=== PATIENT | male | born 1965 | race Caucasian/White ===

== ENCOUNTER 2018-12-26 17:23 | Inpatient (IN) | payer OTHER, MEDICARE ==
[2018-12-26] MEDS ORDERED: Ketorolac 60 MG/2 ML SDV IM ONE (17:35)
--- NOTE | 2018-12-26 17:39 | EDM.PDOC ---
ED HPI GENERAL MEDICAL PROBLEM - General Chief Complaint: General Stated Complaint: ABD PAIN Time Seen by Provider: 12/26/18 17:25 Source of Information: Reports: Patient History Limitations: Reports: No Limitations - History of Present Illness INITIAL COMMENTS - FREE TEXT/NARRATIVE: According to patient,he claims that he has had lower back and abdominal pain for past 5 days now. He claims it happened after he got his MRI done on Friday.He had a bout of diarrhea which resolve that day. The pain is not constant, comes and goes. Has been having normal bowel movements. Last bowel movement was today morning. No dysuria or urinary frequency. Pt does have chronic back pain, but feels the pain from lower abdomen a times radiates into the back. Today he has been feeling chills with nausea on and off. No vomiting. Has been tolerating oral diet well. Duration: Day(s): (5 days), Getting Worse, Intermittent, Waxing/Waning Location: Reports: Abdomen Quality: Reports: Ache Severity: Moderate Improves with: Reports: None Worsens with: Reports: None Associated Symptoms: Reports: Fever/Chills. Denies: Confusion, Chest Pain, Cough, Diaphoresis, Nausea/Vomiting, Rash, Seizure, Shortness of Breath, Syncope , Weakness Mid Lower Abdomen Pain Score (Numeric/FACES): 4 - Related Data Allergies Allergy/AdvReac Type Severity Reaction Status Date / Time No Known Allergies Allergy Verified 12/26/18 17:56 Home Meds: Home Meds Roflumilast [Daliresp] 500 mcg PO DAILY 07/27/13 [History] Albuterol/Ipratropium [Combivent Respimat] 1 puff INH QID 08/26/14 [History] Montelukast [Singulair] 10 mg PO DAILY 08/26/14 [History] Budesonide/Formoterol Fumarate [Symbicort 80-4.5 Mcg Inhaler] 1 puff IH BID 07/08 [History] Past Medical History Respiratory History: Reports: COPD - Past Surgical History Respiratory Surgical History: Reports: None Social & Family History - Family History Respiratory: Reports: COPD ED ROS GENERAL - Review of Systems Review Of Systems: See Below Constitutional: Reports: Fever, Chills. Denies: Weakness HEENT: Denies: Rhinitis, Throat Pain Respiratory: Denies: Shortness of Breath, Pleuritic Chest Pain, Cough, Sputum Cardiovascular: Denies: Chest Pain, Lightheadedness GI/Abdominal: Reports: Abdominal Pain, Flatus, Nausea. Denies: Black Stool, Constipation, Diarrhea, Hematochezia, Vomiting : Denies: Dysuria, Frequency Musculoskeletal: Denies: Joint Pain, Joint Swelling Skin: Denies: Bruising, Pruritis, Rash Neurological: Denies: Confusion, Dizziness, Headache, Numbness, Tingling ED EXAM, GENERAL - Physical Exam Exam: See Below Exam Limited By: No Limitations General Appearance: Alert, WD/WN, No Apparent Distress Eye Exam: Bilateral Eye: EOMI, PERRL Ears: Normal External Exam, Normal Canal, Hearing Grossly Normal, Normal TMs Ear Exam: Bilateral Ear: Auricle Normal, Canal Normal, TM normal Nose: Normal Inspection, Normal Mucosa, No Blood Throat/Mouth: Normal Inspection, Normal Lips, Normal Teeth, Normal Gums, Normal Oropharynx, Normal Voice, No Airway Compromise Head: Atraumatic, Normocephalic Neck: Normal Inspection, Supple, Non-Tender, Full Range of Motion Respiratory/Chest: No Respiratory Distress, Lungs Clear, Normal Breath Sounds, No Accessory Muscle Use, Chest Non-Tender Cardiovascular: Normal Peripheral Pulses, Regular Rate, Rhythm, No Edema, No Gallop, No JVD, No Murmur, No Rub GI/Abdominal: Normal Bowel Sounds, Soft, Pelvis Stable, Tender (tender in the suprapubic and hypogastric regions.). No: Guarding, Rigid, Rebound, Hepatomegaly Back Exam: Normal Inspection, Full Range of Motion, Paraspinal Tenderness ( lumbar region) Extremities: Normal Inspection, Normal Range of Motion, Non-Tender, Normal Capillary Refill, No Pedal Edema Course - Vital Signs Text/Narrative:: Pt is starting to run low grade fever. He has a temp of 100F in the emergency room. On clinical exam he does have lower abdominal tenderness, with normal bowel sounds. His CBC shows white count of 19. BMP is stable. UA shows RBC. CT abdomen with oral contrast shows sigmoid diverticulitis with microperforation, with no abscess. Apparently patient has developed diverticulitis with perforation. Plan is to admit patient to Hospital. Will keep in NPO. IV zosyn. Start IV NS at 125cc/hr for hydration. Pain and fever control with alternating Dilaudid and Toradol every 4 hrs. I have discussed patient with Dr. Tejeda,General surgeon at [facility] he does agree with the plan. HAve explained the disease process with patient too and he agree with the plan. Will repeat CBC and BMP in Am. Last Recorded V/S: Last Vital Signs Temp 100 F 12/26/18 19:08 Pulse 95 12/26/18 19:08 Resp 18 12/26/18 19:08 BP 118/79 12/26/18 19:08 Pulse Ox 93 L 12/26/18 19:08 - Orders/Labs/Meds Orders: Active Orders 24 hr Category Date Time Status Abdomen Pelvis wo Cont [CT] Stat Exams 12/26/18 17:31 Taken Diatrizoate Genesis/Diatrizoate Na [Gastrografin 37%] Med 12/26/18 19:00 Active 30 ml PO . DIRECTED Medication Orders Diatrizoate Meglum/Diatrizoate Sod (Gastrografin 37%) 30 ml PO . DIRECTED TASNEEM Last Admin: 12/26/18 18:57 Dose: 30 ml Labs: Laboratory Tests 12/26/18 12/26/18 12/26/18 Range/Units 17:30 17:30 17:40 WBC 19.5 H (4.0-11.0) K/uL RBC 5.40 (4.50-6.50) M/uL Hgb 16.0 (13.0-18.0) g/dL Hct 46.3 (40.0-54.0) % MCV 86 (76-96) fL MCH 29.6 (27.0-32.0) pg MCHC 34.6 (31.0-35.0) g/dL RDW 14.5 (11.0-16.0) % Plt Count 277 (150-400) K/uL MPV 11.0 H (6.0-10.0) fL Neut % (Auto) 84.1 H (45.0-70.0) % Lymph % (Auto) 8.2 L (20.0-40.0) % [place] % (Auto) 7.0 (3.0-10.0) % Eos % (Auto) 0.4 L (1.0-5.0) % Baso % (Auto) 0.3 (0.0-0.5) % Neut # (Auto) 16.41 H (2.00-7.50) K/uL Lymph # (Auto) 1.61 (1.50-4.00) K/uL [place] # (Auto) 1.37 H (0.20-0.80) K/uL Eos # (Auto) 0.08 (0.04-0.40) K/uL Baso # (Auto) 0.05 (0.02-0.10) K/uL Sodium 137 (136-145) mmol/L Potassium 4.1 (3.5-5.1) mmol/L Chloride 102 (98-107) mmol/L Carbon Dioxide 22.1 (21.0-32.0) mmol/L Anion Gap 17.0 H (5.0-15.0) mmol/L BUN 16 D (8-26) mg/dL Creatinine 1.09 (0.70-1.30) mg/dL Est Cr Clr Drug Dosing TNP Estimated GFR (MDRD) > 60 (>60) MLS/MIN BUN/Creatinine Ratio 14.7 (6-25) Glucose 97 (74-100) mg/dL Calcium 8.4 L (8.5-10.1) mg/dL Total Bilirubin 0.9 (0.0-1.0) mg/dL AST 18 (15-37) U/L ALT 28 (12-78) U/L Alkaline Phosphatase 92 (46-116) U/L Total Protein 7.5 (6.4-8.2) g/dL Albumin 3.5 (3.4-5.0) g/dL Globulin 4.0 (2.2-4.2) g/dL Albumin/Globulin Ratio 0.9 (0.8-2.0) Urine Color Yellow Urine Appearance Clear (CLEAR) Urine pH 5.5 (5.0-8.0) Ur Specific [place] 1.025 (1.003-1.030) Urine Protein 30 H (NEGATIVE) mg/dL Urine Glucose (UA) Negative (NEGATIVE) mg/dL Urine Ketones 40 H (NEGATIVE) mg/dL Urine Occult Blood Trace-lysed H (NEGATIVE) Urine Nitrite Negative (NEGATIVE) Urine Bilirubin Small H (NEGATIVE) Urine Urobilinogen 0.2 (0.2-1.0) E.U./dL Ur Leukocyte Esterase Negative (NEGATIVE) Urine RBC Not seen /HPF Urine WBC Not seen /HPF Meds: Medications Generic Name Dose Route Start Last Admin Trade Name Freq PRN Reason Stop Dose Admin Diatrizoate Meglum/Diatrizoate Sod 30 ml 12/26/18 19:00 12/26/18 18:57 Gastrografin 37% PO 30 ml . DIRECTED TASNEEM Administration Discontinued Medications Generic Name Dose Route Start Last Admin Trade Name Freq PRN Reason Stop Dose Admin Hydromorphone HCl 2 mg 12/26/18 18:08 12/26/18 18:12 Dilaudid IM 12/26/18 18:09 Not Given ONETIME ONE Hydromorphone HCl 1 mg 12/26/18 18:09 12/26/18 18:11 Dilaudid IVPUSH 12/26/18 18:10 1 mg ONETIME ONE Administration Ketorolac Tromethamine 30 mg 12/26/18 17:35 12/26/18 17:35 Toradol IM 12/26/18 17:36 30 mg ONETIME ONE Administration Departure - Departure Time of Disposition: 19:45 Disposition: Admitted As Inpatient 66 Condition: Fair Clinical Impression: Diverticulitis of colon with perforation - Discharge Information *PRESCRIPTION DRUG MONITORING PROGRAM REVIEWED*: Not Applicable *COPY OF PRESCRIPTION DRUG MONITORING REPORT IN PATIENT MAURICIO: Not Applicable Forms: ED Department Discharge - Problem List & Annotations (1) Diverticulitis of colon with perforation SNOMED Code(s): 79468816 Code(s): K57.20 - DVTRCLI OF LG INT W PERFORATION AND ABSCESS W/O BLEEDING Status: Acute Current Visit: Yes - Problem List Review Problem List Initiated/Reviewed/Updated: Yes - My Orders Last 24 Hours: My Active Orders 12/26/18 17:31 Abdomen Pelvis wo Cont [CT] Stat - Assessment/Plan Last 24 Hours: My Active Orders 12/26/18 17:31 Abdomen Pelvis wo Cont [CT] Stat Assessment:: Sigmoid diverticulitis with perforation Plan: Pt is starting to run low grade fever. He has a temp of 100F in the emergency room. On clinical exam he does have lower abdominal tenderness, with normal bowel sounds. His CBC shows white count of 19. BMP is stable. UA shows RBC. CT abdomen with oral contrast shows sigmoid diverticulitis with microperforation, with no abscess. Apparently patient has developed diverticulitis with perforation. Plan is to admit patient to Hospital. Will keep in NPO. IV zosyn. Start IV NS at 125cc/hr for hydration. Pain and fever control with alternating Dilaudid and Toradol every 4 hrs. I have discussed patient with Dr. Tejeda,General surgeon at [facility] he does agree with the plan. Have explained the disease process with patient too and he agree with the plan. Will repeat CBC and BMP in Am.
[2018-12-26] MEDS ORDERED: HYDROmorphone 2 MG/ML SDV IM ONE (18:08)
[2018-12-26] MEDS ORDERED: HYDROmorphone 2 MG/ML Syringe IVPUSH ONE (18:09)
[2018-12-26] MEDS ORDERED: Diatrizoate Meglumine/Diatrizoate Sodium 37% 30 ML Bottle PO SCH (19:00)
[2018-12-26] MEDS ORDERED: Sodium Chloride 0.9% 10 ML Syringe FLUSH PRN (19:51)
[2018-12-26] MEDS ORDERED: Ketorolac 60 MG/2 ML SDV IVPUSH PRN (19:51)
[2018-12-26] MEDS ORDERED: Ondansetron 4 MG/2 ML SDV IV PRN (19:51)
[2018-12-26] MEDS: Sodium Chloride 0.9% 1,000 ML IV SCH (20:20)
[2018-12-26] MEDS: HYDROmorphone 2 MG/ML Syringe IV PRN (20:43)
[2018-12-26] MEDS ORDERED: Non-Formulary Medication 1 Each (Budesonide/Formoterol Fumarate [Symbicort 80-4.5 Mcg Inha IH SCH (20:45)
[2018-12-26] MEDS: Piperacillin/Tazobactam 3.375 GM in Sodium Chloride 0.9% 100 ML IV SCH (20:46)
[2018-12-26] MEDS: Formoterol/Mometasone 100-5 MCG 8.8 GM Inhaler IH SCH (21:12)
[2018-12-26] MEDS ORDERED: Albuterol/Ipratropium 14.7 GM Inhaler INH PRN (21:15)
[2018-12-27] MEDS: Pantoprazole 40 MG Vial IVPUSH SCH ×2 (01:13→19:58)
[2018-12-27] MEDS: Ketorolac 60 MG/2 ML SDV IVPUSH PRN ×3 (01:16→22:15)
[2018-12-27] MEDS: Piperacillin/Tazobactam 3.375 GM in Sodium Chloride 0.9% 100 ML IV SCH ×4 (01:18→20:03)
[2018-12-27] MEDS: HYDROmorphone 2 MG/ML Syringe IV PRN ×2 (05:55→18:05)
[2018-12-27] MEDS: Sodium Chloride 0.9% 1,000 ML IV SCH ×3 (07:37→22:10)
[2018-12-27] MEDS: Formoterol/Mometasone 100-5 MCG 8.8 GM Inhaler IH SCH ×2 (07:58→19:55)
[2018-12-27] MEDS ORDERED: Montelukast 10 MG Tab PO SCH (08:00)
[2018-12-27] MEDS ORDERED: Roflumilast 500 MCG Tab PO SCH (08:00)
[2018-12-27] MEDS ORDERED: Non-Formulary Medication 1 Each (Albuterol/Ipratropium [Combivent Respimat] 1 PUFF) INH SCH (08:00)
--- NOTE | 2018-12-27 10:24 | PCM.PN ---
- Patient Data Vitals - Most Recent: Last Vital Signs Temp 98 F 12/27/18 08:00 Pulse 85 12/27/18 08:00 Resp 18 12/27/18 08:00 BP 93/59 L 12/27/18 08:00 Pulse Ox 94 L 12/27/18 08:00 Weight - Most Recent: 91.989 kg I&O - Last 24 Hours: Intake & Output 12/26/18 12/27/18 12/27/18 21:59 06:59 14:59 Intake Total Output Total Balance Lab Results Last 24 Hours: Laboratory Results - last 24 hr 12/26/18 12/26/18 12/26/18 Range/Units 17:30 17:30 17:40 WBC 19.5 H (4.0-11.0) K/uL RBC 5.40 (4.50-6.50) M/uL Hgb 16.0 (13.0-18.0) g/dL Hct 46.3 (40.0-54.0) % MCV 86 (76-96) fL MCH 29.6 (27.0-32.0) pg MCHC 34.6 (31.0-35.0) g/dL RDW 14.5 (11.0-16.0) % Plt Count 277 (150-400) K/uL MPV 11.0 H (6.0-10.0) fL Neut % (Auto) 84.1 H (45.0-70.0) % Lymph % (Auto) 8.2 L (20.0-40.0) % [place] % (Auto) 7.0 (3.0-10.0) % Eos % (Auto) 0.4 L (1.0-5.0) % Baso % (Auto) 0.3 (0.0-0.5) % Neut # (Auto) 16.41 H (2.00-7.50) K/uL Lymph # (Auto) 1.61 (1.50-4.00) K/uL [place] # (Auto) 1.37 H (0.20-0.80) K/uL Eos # (Auto) 0.08 (0.04-0.40) K/uL Baso # (Auto) 0.05 (0.02-0.10) K/uL Sodium 137 (136-145) mmol/L Potassium 4.1 (3.5-5.1) mmol/L Chloride 102 (98-107) mmol/L Carbon Dioxide 22.1 (21.0-32.0) mmol/L Anion Gap 17.0 H (5.0-15.0) mmol/L BUN 16 D (8-26) mg/dL Creatinine 1.09 (0.70-1.30) mg/dL Est Cr Clr Drug Dosing TNP Estimated GFR (MDRD) > 60 (>60) MLS/MIN BUN/Creatinine Ratio 14.7 (6-25) Glucose 97 (74-100) mg/dL Calcium 8.4 L (8.5-10.1) mg/dL Total Bilirubin 0.9 (0.0-1.0) mg/dL AST 18 (15-37) U/L ALT 28 (12-78) U/L Alkaline Phosphatase 92 (46-116) U/L Total Protein 7.5 (6.4-8.2) g/dL Albumin 3.5 (3.4-5.0) g/dL Globulin 4.0 (2.2-4.2) g/dL Albumin/Globulin Ratio 0.9 (0.8-2.0) Urine Color Yellow Urine Appearance Clear (CLEAR) Urine pH 5.5 (5.0-8.0) Ur Specific [place] 1.025 (1.003-1.030) Urine Protein 30 H (NEGATIVE) mg/dL Urine Glucose (UA) Negative (NEGATIVE) mg/dL Urine Ketones 40 H (NEGATIVE) mg/dL Urine Occult Blood Trace-lysed H (NEGATIVE) Urine Nitrite Negative (NEGATIVE) Urine Bilirubin Small H (NEGATIVE) Urine Urobilinogen 0.2 (0.2-1.0) E.U./dL Ur Leukocyte Esterase Negative (NEGATIVE) Urine RBC Not seen /HPF Urine WBC Not seen /HPF 12/27/18 12/27/18 Range/Units 09:33 09:33 WBC 13.3 H D (4.0-11.0) K/uL RBC 4.78 (4.50-6.50) M/uL Hgb 13.9 (13.0-18.0) g/dL Hct 42.0 (40.0-54.0) % MCV 88 (76-96) fL MCH 29.1 (27.0-32.0) pg MCHC 33.1 (31.0-35.0) g/dL RDW 14.7 (11.0-16.0) % Plt Count 213 D (150-400) K/uL MPV 10.6 H (6.0-10.0) fL Neut % (Auto) 72.3 H (45.0-70.0) % Lymph % (Auto) 16.5 L (20.0-40.0) % [place] % (Auto) 9.8 (3.0-10.0) % Eos % (Auto) 1.1 (1.0-5.0) % Baso % (Auto) 0.3 (0.0-0.5) % Neut # (Auto) 9.61 H (2.00-7.50) K/uL Lymph # (Auto) 2.19 (1.50-4.00) K/uL [place] # (Auto) 1.30 H (0.20-0.80) K/uL Eos # (Auto) 0.15 (0.04-0.40) K/uL Baso # (Auto) 0.04 (0.02-0.10) K/uL Sodium 142 (136-145) mmol/L Potassium 4.0 (3.5-5.1) mmol/L Chloride 106 (98-107) mmol/L Carbon Dioxide 26.2 (21.0-32.0) mmol/L Anion Gap 13.8 (5.0-15.0) mmol/L BUN 18 (8-26) mg/dL Creatinine 1.17 (0.70-1.30) mg/dL Est Cr Clr Drug Dosing 65.89 Estimated GFR (MDRD) > 60 (>60) MLS/MIN BUN/Creatinine Ratio 15.4 (6-25) Glucose 104 H (74-100) mg/dL Calcium 7.7 L (8.5-10.1) mg/dL Total Bilirubin (0.0-1.0) mg/dL AST (15-37) U/L ALT (12-78) U/L Alkaline Phosphatase (46-116) U/L Total Protein (6.4-8.2) g/dL Albumin (3.4-5.0) g/dL Globulin (2.2-4.2) g/dL Albumin/Globulin Ratio (0.8-2.0) Urine Color Urine Appearance (CLEAR) Urine pH (5.0-8.0) Ur Specific [place] (1.003-1.030) Urine Protein (NEGATIVE) mg/dL Urine Glucose (UA) (NEGATIVE) mg/dL Urine Ketones (NEGATIVE) mg/dL Urine Occult Blood (NEGATIVE) Urine Nitrite (NEGATIVE) Urine Bilirubin (NEGATIVE) Urine Urobilinogen (0.2-1.0) E.U./dL Ur Leukocyte Esterase (NEGATIVE) Urine RBC /HPF Urine WBC /HPF Med Orders - Current: Current Medications Albuterol/Ipratropium (Combivent) 0 gm INH QID PRN PRN Reason: SHORTNESS OF BREATH Hydromorphone HCl (Dilaudid) 1 mg IV Q8H PRN PRN Reason: Pain (severe 7-10) Last Admin: 12/27/18 05:55 Dose: 1 mg Sodium Chloride (Normal Saline) 1,000 mls @ 125 mls/hr IV ASDIRECTED [facility] Last Admin: 12/27/18 07:37 Dose: 125 mls/hr Piperacillin Sod/Tazobactam (Sod 3.375 gm/ Sodium Chloride) 100 mls @ 100 mls/ hr IV Q6H [facility] Last Admin: 12/27/18 07:53 Dose: 100 mls/hr Ketorolac Tromethamine (Toradol) 30 mg IVPUSH Q8H PRN PRN Reason: Pain (moderate 4-6) Stop: 12/31/18 23:31 Last Admin: 12/27/18 10:22 Dose: 30 mg Mometasone Furoate/Formoterol Fumar (Dulera 100-5 Mcg) 2 puff IH BID [facility] Last Admin: 12/27/18 07:58 Dose: 2 puff Ondansetron HCl (Zofran) 4 mg IV Q6H PRN PRN Reason: Nausea/Vomiting Pantoprazole Sodium (Protonix Iv) 40 mg IVPUSH BEDTIME [facility] Last Admin: 12/27/18 01:13 Dose: 40 mg Sodium Chloride (Saline Flush) 10 ml FLUSH ASDIRECTED PRN PRN Reason: Keep Vein Open Discontinued Medications Diatrizoate Meglum/Diatrizoate Sod (Gastrografin 37%) 30 ml PO . DIRECTED [facility] Last Admin: 12/26/18 18:57 Dose: 30 ml Hydromorphone HCl (Dilaudid) 2 mg IM ONETIME ONE Stop: 12/26/18 18:09 Last Admin: 12/26/18 18:12 Dose: Not Given Hydromorphone HCl (Dilaudid) 1 mg IVPUSH ONETIME ONE Stop: 12/26/18 18:10 Last Admin: 12/26/18 18:11 Dose: 1 mg Ketorolac Tromethamine (Toradol) 30 mg IM ONETIME ONE Stop: 12/26/18 17:36 Last Admin: 12/26/18 17:35 Dose: 30 mg Ketorolac Tromethamine (Toradol) 30 mg IVPUSH Q8H PRN PRN Reason: Pain (moderate 4-6) Montelukast Sodium (Singulair) 10 mg PO DAILY [facility] Last Admin: 12/27/18 10:07 Dose: Not Given Non-Formulary Medication (Albuterol/Ipratropium [Combivent Respimat]) 1 puff INH QID [facility] Non-Formulary Medication (Budesonide/Formoterol Fumarate [Symbicort 80-4.5 Mcg Inhaler]) 1 puff IH BID [facility] Last Admin: 12/26/18 21:07 Dose: Not Given - Problem List & Annotations (1) Diverticulitis of colon with perforation SNOMED Code(s): 32714256 Code(s): K57.20 - DVTRCLI OF LG INT W PERFORATION AND ABSCESS W/O BLEEDING Status: Acute Current Visit: Yes - My Orders Last 24 Hours: My Active Orders 12/26/18 17:31 Abdomen Pelvis wo Cont [CT] Stat 12/26/18 19:51 Patient Status [ADT] Routine Bedrest Bathroom Privileges [RC] ASDIRECTED Oxygen Therapy [RC] PRN Vital Signs [RC] Q4H HYDROmorphone [Dilaudid] 1 mg IV Q8H PRN Ondansetron [Zofran] 4 mg IV Q6H PRN Sodium Chloride 0.9% [Saline Flush] 10 ml FLUSH ASDIRECTED PRN Peripheral IV Insertion Adult [OM.PC] Routine Resuscitation Status Routine 12/26/18 19:52 Intake and Output [RC] 06,18 12/26/18 20:00 Piperacillin/Tazobactam [Zosyn] 3.375 gm Sodium Chloride 0.9% [Normal Saline] 100 ml IV Q6H Sodium Chloride 0.9% [Normal Saline] 1,000 ml IV ASDIRECTED 12/26/18 21:15 Albuterol/Ipratropium [Combivent] 0 gm INH QID PRN Mometasone/Formoterol [Dulera 100-5 MCG] 2 puff IH BID 12/26/18 23:30 Ketorolac [Toradol] 30 mg IVPUSH Q8H PRN 12/27/18 01:00 Pantoprazole [ProTONIX IV] 40 mg IVPUSH BEDTIME
--- NOTE | 2018-12-27 12:27 | CT ---
DATE OF SERVICE: 12/26/18 CLINICAL DATA: lower abdomen pain ABDOMEN AND PELVIC CT: Multislice acquisition through the abdomen and pelvis without IV, but with oral contrast was performed. No priors. There is a small hiatal hernia There are minimal atelectatic changes in both lung bases. The lung bases are otherwise clear. The unenhanced liver appears normal. No focal hepatic lesions. There are small radiodensities within the gallbladder, suspicious for gallstones. Gallbladder ultrasound is recommended. The spleen appears normal. The pancreas appears normal. The right and left adrenals appear normal. The right and left kidneys appear normal. No nephrocalcinosis or nephrolithiasis. No hydronephrosis or hydroureter. The appendix is not dilated. No evidence of appendicitis. There is diverticulosis of the descending and sigmoid colon. There is extensive pericolonic fat stranding adjacent to the proximal and mid sigmoid colon. There is also mural thickening throughout this segment of the colon. The findings are consistent with acute diverticulitis. I do not see any evidence of a diverticular abscess. I do not see any free air. I do not see any free fluid. I see no adenopathy. I see no aortic aneurysm. There is a small amount of fluid within the bladder. It appears grossly normal. IMPRESSION: 1) Diverticulosis. Findings consistent with sigmoid diverticulitis. There is mural thickening throughout this segment of the colon, most likely related to the diverticulitis. Colonoscopy over treatment is, however, recommended to exclude an infiltrating process. 2) Probable small gallstones. Gallbladder ultrasound is recommended. [id number] [facility]
--- NOTE | 2018-12-27 16:12 | PCM.PN ---
- General Info Date of Service: 12/27/18 Subjective Update: Pt claims he is feeling better with his abdominal pain. Still gets mild colicky pain. He has had 2 large loose stools, which were watery today. Tmax of 100F. No nausea or vomiting. No abdominal bloating. Functional Status: Reports: Pain Controlled, Ambulating, Urinating, Other (NPO) - Review of Systems General: Reports: Fever. Denies: Weakness, Fatigue HEENT: Denies: Headaches, Sinus Congestion Pulmonary: Denies: Shortness of Breath, Pleuritic Chest Pain, Sputum, Hemoptysis Cardiovascular: Denies: Chest Pain, Lightheadedness Gastrointestinal: Reports: Diarrhea, Flatus. Denies: Abdominal Pain, Hematochezia, Melena Genitourinary: Denies: Dysuria, Frequency Skin: Denies: Jaundice, Pruritis Neurological: Denies: Confusion, Dizziness - Patient Data Vitals - Most Recent: Last Vital Signs Temp 97.6 F 12/27/18 11:43 Pulse 78 12/27/18 11:43 Resp 20 12/27/18 11:43 BP 100/63 12/27/18 11:43 Pulse Ox 95 12/27/18 11:43 Weight - Most Recent: 91.989 kg I&O - Last 24 Hours: Intake & Output 12/27/18 12/27/18 12/27/18 06:59 14:59 22:59 Intake Total Output Total Balance Lab Results Last 24 Hours: Laboratory Results - last 24 hr 12/26/18 12/26/18 12/26/18 Range/Units 17:30 17:30 17:40 WBC 19.5 H (4.0-11.0) K/uL RBC 5.40 (4.50-6.50) M/uL Hgb 16.0 (13.0-18.0) g/dL Hct 46.3 (40.0-54.0) % MCV 86 (76-96) fL MCH 29.6 (27.0-32.0) pg MCHC 34.6 (31.0-35.0) g/dL RDW 14.5 (11.0-16.0) % Plt Count 277 (150-400) K/uL MPV 11.0 H (6.0-10.0) fL Neut % (Auto) 84.1 H (45.0-70.0) % Lymph % (Auto) 8.2 L (20.0-40.0) % [place] % (Auto) 7.0 (3.0-10.0) % Eos % (Auto) 0.4 L (1.0-5.0) % Baso % (Auto) 0.3 (0.0-0.5) % Neut # (Auto) 16.41 H (2.00-7.50) K/uL Lymph # (Auto) 1.61 (1.50-4.00) K/uL [place] # (Auto) 1.37 H (0.20-0.80) K/uL Eos # (Auto) 0.08 (0.04-0.40) K/uL Baso # (Auto) 0.05 (0.02-0.10) K/uL Sodium 137 (136-145) mmol/L Potassium 4.1 (3.5-5.1) mmol/L Chloride 102 (98-107) mmol/L Carbon Dioxide 22.1 (21.0-32.0) mmol/L Anion Gap 17.0 H (5.0-15.0) mmol/L BUN 16 D (8-26) mg/dL Creatinine 1.09 (0.70-1.30) mg/dL Est Cr Clr Drug Dosing TNP Estimated GFR (MDRD) > 60 (>60) MLS/MIN BUN/Creatinine Ratio 14.7 (6-25) Glucose 97 (74-100) mg/dL Calcium 8.4 L (8.5-10.1) mg/dL Total Bilirubin 0.9 (0.0-1.0) mg/dL AST 18 (15-37) U/L ALT 28 (12-78) U/L Alkaline Phosphatase 92 (46-116) U/L Total Protein 7.5 (6.4-8.2) g/dL Albumin 3.5 (3.4-5.0) g/dL Globulin 4.0 (2.2-4.2) g/dL Albumin/Globulin Ratio 0.9 (0.8-2.0) Urine Color Yellow Urine Appearance Clear (CLEAR) Urine pH 5.5 (5.0-8.0) Ur Specific [place] 1.025 (1.003-1.030) Urine Protein 30 H (NEGATIVE) mg/dL Urine Glucose (UA) Negative (NEGATIVE) mg/dL Urine Ketones 40 H (NEGATIVE) mg/dL Urine Occult Blood Trace-lysed H (NEGATIVE) Urine Nitrite Negative (NEGATIVE) Urine Bilirubin Small H (NEGATIVE) Urine Urobilinogen 0.2 (0.2-1.0) E.U./dL Ur Leukocyte Esterase Negative (NEGATIVE) Urine RBC Not seen /HPF Urine WBC Not seen /HPF 12/27/18 12/27/18 12/27/18 Range/Units 09:33 09:33 15:49 WBC 13.3 H D (4.0-11.0) K/uL RBC 4.78 (4.50-6.50) M/uL Hgb 13.9 (13.0-18.0) g/dL Hct 42.0 (40.0-54.0) % MCV 88 (76-96) fL MCH 29.1 (27.0-32.0) pg MCHC 33.1 (31.0-35.0) g/dL RDW 14.7 (11.0-16.0) % Plt Count 213 D (150-400) K/uL MPV 10.6 H (6.0-10.0) fL Neut % (Auto) 72.3 H (45.0-70.0) % Lymph % (Auto) 16.5 L (20.0-40.0) % [place] % (Auto) 9.8 (3.0-10.0) % Eos % (Auto) 1.1 (1.0-5.0) % Baso % (Auto) 0.3 (0.0-0.5) % Neut # (Auto) 9.61 H (2.00-7.50) K/uL Lymph # (Auto) 2.19 (1.50-4.00) K/uL [place] # (Auto) 1.30 H (0.20-0.80) K/uL Eos # (Auto) 0.15 (0.04-0.40) K/uL Baso # (Auto) 0.04 (0.02-0.10) K/uL Sodium 142 (136-145) mmol/L Potassium 4.0 (3.5-5.1) mmol/L Chloride 106 (98-107) mmol/L Carbon Dioxide 26.2 (21.0-32.0) mmol/L Anion Gap 13.8 (5.0-15.0) mmol/L BUN 18 (8-26) mg/dL Creatinine 1.17 (0.70-1.30) mg/dL Est Cr Clr Drug Dosing 65.89 Estimated GFR (MDRD) > 60 (>60) MLS/MIN BUN/Creatinine Ratio 15.4 (6-25) Glucose 104 H (74-100) mg/dL Calcium 7.7 L (8.5-10.1) mg/dL Total Bilirubin (0.0-1.0) mg/dL AST (15-37) U/L ALT (12-78) U/L Alkaline Phosphatase (46-116) U/L Total Protein (6.4-8.2) g/dL Albumin (3.4-5.0) g/dL Globulin (2.2-4.2) g/dL Albumin/Globulin Ratio (0.8-2.0) Urine Color Yellow Urine Appearance Cloudy (CLEAR) Urine pH 5.5 (5.0-8.0) Ur Specific [place] >= 1.030 (1.003-1.030) Urine Protein Trace H (NEGATIVE) mg/dL Urine Glucose (UA) Negative (NEGATIVE) mg/dL Urine Ketones Trace H (NEGATIVE) mg/dL Urine Occult Blood Negative (NEGATIVE) Urine Nitrite Negative (NEGATIVE) Urine Bilirubin Small H (NEGATIVE) Urine Urobilinogen 0.2 (0.2-1.0) E.U./dL Ur Leukocyte Esterase Negative (NEGATIVE) Urine RBC /HPF Urine WBC /HPF Med Orders - Current: Current Medications Albuterol/Ipratropium (Combivent) 0 gm INH QID PRN PRN Reason: SHORTNESS OF BREATH Hydromorphone HCl (Dilaudid) 1 mg IV Q8H PRN PRN Reason: Pain (severe 7-10) Last Admin: 12/27/18 05:55 Dose: 1 mg Sodium Chloride (Normal Saline) 1,000 mls @ 125 mls/hr IV ASDIRECTED [facility] Last Admin: 12/27/18 07:37 Dose: 125 mls/hr Piperacillin Sod/Tazobactam (Sod 3.375 gm/ Sodium Chloride) 100 mls @ 100 mls/ hr IV Q6H [facility] Last Admin: 12/27/18 14:03 Dose: 100 mls/hr Ketorolac Tromethamine (Toradol) 30 mg IVPUSH Q8H PRN PRN Reason: Pain (moderate 4-6) Stop: 12/31/18 23:31 Last Admin: 12/27/18 10:22 Dose: 30 mg Mometasone Furoate/Formoterol Fumar (Dulera 100-5 Mcg) 2 puff IH BID [facility] Last Admin: 12/27/18 07:58 Dose: 2 puff Ondansetron HCl (Zofran) 4 mg IV Q6H PRN PRN Reason: Nausea/Vomiting Pantoprazole Sodium (Protonix Iv) 40 mg IVPUSH BEDTIME [facility] Last Admin: 12/27/18 01:13 Dose: 40 mg Sodium Chloride (Saline Flush) 10 ml FLUSH ASDIRECTED PRN PRN Reason: Keep Vein Open Discontinued Medications Diatrizoate Meglum/Diatrizoate Sod (Gastrografin 37%) 30 ml PO . DIRECTED [facility] Last Admin: 12/26/18 18:57 Dose: 30 ml Hydromorphone HCl (Dilaudid) 2 mg IM ONETIME ONE Stop: 12/26/18 18:09 Last Admin: 12/26/18 18:12 Dose: Not Given Hydromorphone HCl (Dilaudid) 1 mg IVPUSH ONETIME ONE Stop: 12/26/18 18:10 Last Admin: 12/26/18 18:11 Dose: 1 mg Ketorolac Tromethamine (Toradol) 30 mg IM ONETIME ONE Stop: 12/26/18 17:36 Last Admin: 12/26/18 17:35 Dose: 30 mg Ketorolac Tromethamine (Toradol) 30 mg IVPUSH Q8H PRN PRN Reason: Pain (moderate 4-6) Montelukast Sodium (Singulair) 10 mg PO DAILY [facility] Last Admin: 12/27/18 10:07 Dose: Not Given Non-Formulary Medication (Albuterol/Ipratropium [Combivent Respimat]) 1 puff INH QID [facility] Non-Formulary Medication (Budesonide/Formoterol Fumarate [Symbicort 80-4.5 Mcg Inhaler]) 1 puff IH BID [facility] Last Admin: 12/26/18 21:07 Dose: Not Given - Exam General: Alert, Oriented HEENT: Pupils Equal, Pupils Reactive, EOMI, Mucous Membr. Moist/[place] Neck: Supple Lungs: Clear to Auscultation Cardiovascular: Regular Rate, Regular Rhythm GI/Abdominal Exam: Soft, No Distention, Tender (tender in the lower abdomen), Abnormal Bowel Sounds (slightly hyperactive bowel sounds). No: Guarding, Rigid , Rebound Extremities: Normal Inspection, Normal Range of Motion, Non-Tender, No Pedal Edema, Normal Capillary Refill Skin: Warm, Intact - Problem List & Annotations (1) Diverticulitis of colon with perforation SNOMED Code(s): 01812527 Code(s): K57.20 - DVTRCLI OF LG INT W PERFORATION AND ABSCESS W/O BLEEDING Status: Acute Current Visit: Yes - Problem List Review Problem List Initiated/Reviewed/Updated: Yes - My Orders Last 24 Hours: My Active Orders 12/26/18 19:51 Patient Status [ADT] Routine Bedrest Bathroom Privileges [RC] ASDIRECTED Oxygen Therapy [RC] PRN Vital Signs [RC] Q4H HYDROmorphone [Dilaudid] 1 mg IV Q8H PRN Ondansetron [Zofran] 4 mg IV Q6H PRN Sodium Chloride 0.9% [Saline Flush] 10 ml FLUSH ASDIRECTED PRN Peripheral IV Insertion Adult [OM.PC] Routine Resuscitation Status Routine 12/26/18 19:52 Intake and Output [RC] 06,18 12/26/18 20:00 Piperacillin/Tazobactam [Zosyn] 3.375 gm Sodium Chloride 0.9% [Normal Saline] 100 ml IV Q6H Sodium Chloride 0.9% [Normal Saline] 1,000 ml IV ASDIRECTED 12/26/18 21:15 Albuterol/Ipratropium [Combivent] 0 gm INH QID PRN Mometasone/Formoterol [Dulera 100-5 MCG] 2 puff IH BID 12/26/18 23:30 Ketorolac [Toradol] 30 mg IVPUSH Q8H PRN 12/27/18 01:00 Pantoprazole [ProTONIX IV] 40 mg IVPUSH BEDTIME 03/10/19 15:49 UA W/MICROSCOPIC [URIN] Routine - Assessment Assessment:: Sigmoid diverticulitis with perforation - Plan Plan:: Pt's white count is down to 13K today. Still has abdominal pain, but improving. Afebrile today. Will continue Iv fluids and keep him NPO on antibitocis. He has had decreased urine output, but probably lost fluids with diarrhea. UA done today is negative for infection and his BMP is stable.Have given bolus of 500cc NS. will repeat CBC and BMP in Am.
[2018-12-27] MEDS ORDERED: Sodium Chloride 0.9% 500 ML IV ONE ×2 (16:19→16:21)
[2018-12-28] MEDS: HYDROmorphone 2 MG/ML Syringe IV PRN (01:18)
[2018-12-28] MEDS: Piperacillin/Tazobactam 3.375 GM in Sodium Chloride 0.9% 100 ML IV SCH ×2 (01:19→08:16)
[2018-12-28] MEDS: Sodium Chloride 0.9% 1,000 ML IV SCH (08:07)
[2018-12-28] MEDS: Ketorolac 60 MG/2 ML SDV IVPUSH PRN (08:08)
[2018-12-28] MEDS ORDERED: Iopamidol 612 MG/ML 100 ML Bottle IV PRN (08:41)
[2018-12-28] MEDS ORDERED: Sodium Chloride 0.9% 50 ML SDV FLUSH SCH (08:45)
[2018-12-28] MEDS: Formoterol/Mometasone 100-5 MCG 8.8 GM Inhaler IH SCH (08:58)
[2018-12-28 10:36] VITALS: BP 114/72
--- NOTE | 2018-12-28 11:01 | CT ---
DATE OF SERVICE: 12/28/2018 CLINICAL DATA: Possible diverticular abscess. ENHANCED ABDOMEN AND PELVIC CT: Multislice acquisition through the abdomen with IV, but without oral contrast was performed. Comparison is made to a prior unenhanced abdomen and pelvic CT dated 2018. Again noted is the extensive pericolonic fat stranding adjacent to the distal descending and sigmoid colon consistent with diverticulitis. There has been mild progression from the prior exam. I do not see evidence of a diverticular abscess. There is mural thickening of this segment of colon most likely due to the diverticulitis. Again colonoscopy after treatment is necessary to exclude an infiltrating process. The exam is otherwise unchanged from the prior. No new abnormalities. No free air. No dilated loops of bowel. The liver, gallbladder, spleen, pancreas, right and left adrenals and right and left kidneys are stable. [id number] [facility]
--- NOTE | 2018-12-28 12:12 | PCM.DCSUM1 ---
Discharge Summary - Hospital Course Free Text/Narrative:: Pt presented to the emergency room on 12/26/18 with c/o lower abdominal pain for 5 days. On workup in the emergency room, he did have sigmoid diverticulitis with possible microperforation. Pt was clinically stable other than low grade temp of 100F. After consulting with Dr. Tejeda ( General surgeon at [facility]), patient was admitted for conservative management. He was started on zosyn 3.375mg Iv every 6 hrs. IV NS at 125cc/hr. Alternating toradol 30mg with Dilaudid 1mg Iv every 4 hrs for pain control. Was kept NPO. On 12/27/18, pt was afebrile. He did have 2 watery loose stools. His abdominal exam was benign, minimal lower abdominal tenderness. His whit e coutn was down form 19.5 to 13K. His neutrophils were 72%, with stable BMP. Pt was continue on conservative management. On evening of the day around 4 pm, patient started to have cloudy peach coloured urine. His UA was negative for UTI. Pt had no new symptoms. So he was observed. 0n 12/28/18, On morning rounds, pt c/o increased abdominal distension and pain. He has had 2 loose stools today morning. Vitals are stable, and is afebrile. No nausea or vomiting. His white count is 14.2K with 80% neutrophils. I/O 3161/ 750. Also his urine is milky peach coloured. I am not sure if he has developed a colovesical fistula as a complication. Pt's CT abdomen with IV contrast was repeat due to change in patient symptoms and clinical findings. His CT scan does show sigmoid diverticulitis with pericolic fat inflammation with phlegmon. At this point I did contact [facility] and discussed with them. Apparently they do not have bed and interventional radiology if needed. Hence, [facility] recommended to transfer patient to facility able to take care of patient. I did contact [facility] and discuss patient with Dr. Nelson, the general surgeon workers compensation examiner .Dr. Nelson did accept patient, but there is no available bed in the hospital. Hence I did [facility] and have discussed patient with General Surgeon Dr. Vega and Hospitalist Dr. Domingo. They have agreed to accept patient. Pt is hemodynamically stable at the time of transfer. Will keep him NPO , continue IV fluids on transfer. Pt will be transferred by [facility] ambulance. Further care per Dr. Vega and Dr. Domingo. Brief History: Presented to emergency room on 12/26/18 with c/o lower abdominal pain for 5 days, with new onset fever, chills and nasuea. Kindly see. H&P for details. Diagnosis: Stroke: No - Discharge Data Discharge Date: 12/28/18 Discharge Disposition: DC/Tfer to Acute Hospital 02 Condition: Good - Discharge Diagnosis/Problem(s) (1) Diverticulitis of colon with perforation SNOMED Code(s): 63266688 ICD Code: K57.20 - DVTRCLI OF LG INT W PERFORATION AND ABSCESS W/O BLEEDING Status: Acute Current Visit: Yes - Patient Instructions Diet: NPO Activity: As Tolerated - Discharge Plan *PRESCRIPTION DRUG MONITORING PROGRAM REVIEWED*: Not Applicable *COPY OF PRESCRIPTION DRUG MONITORING REPORT IN PATIENT MAURICIO: Not Applicable Home Medications: Home Meds Albuterol/Ipratropium [Combivent Respimat] 1 puff INH QID PRN 08/26/14 [History] Budesonide/Formoterol Fumarate [Symbicort 80-4.5 Mcg Inhaler] 1 puff IH BID 07/08 [History] HYDROmorphone [Dilaudid] 1 mg IV Q8H PRN syringe 12/28/18 [Rx] Ketorolac [Toradol] 30 mg IVPUSH Q8H PRN vial 12/28/18 [Rx] Ondansetron [Zofran] 4 mg IV Q6H PRN vial 12/28/18 [Rx] Pantoprazole [ProTONIX IV] 40 mg IVPUSH BEDTIME vial 12/28/18 [Rx] Piperacillin/Tazobactam [Zosyn] 3.375 gm IV Q6H vial 12/28/18 [Rx] Sodium Chloride 0.9% [Normal Saline] 125 ml IV ASDIRECTED bag 12/28/18 [Rx] Patient Handouts: Piperacillin; Tazobactam injection, Diverticulitis Forms: ED Department Discharge Referrals: PCP,None [Primary Care Provider] - - Discharge Summary/Plan Comment DC Time >30 min.: Yes Discharge Summary/Plan Comment: Pt transferred to [facility], by [facility] ambulance. - General Info Date of Service: 12/28/18 Functional Status: Reports: Pain Controlled, Ambulating, Urinating - Review of Systems General: Denies: Fever, Weakness HEENT: Denies: Sinus Congestion, Rhinitis Pulmonary: Denies: Shortness of Breath, Pleuritic Chest Pain, Sputum, Hemoptysis Cardiovascular: Denies: Chest Pain, Lightheadedness Gastrointestinal: Reports: Abdominal Pain, Diarrhea, Other (distension). Denies : Nausea, Vomiting Genitourinary: Denies: Dysuria, Frequency, Urgency Musculoskeletal: Denies: Joint Pain, Joint Swelling Skin: Denies: Bruising, Pruritis, Rash Neurological: Denies: Confusion, Dizziness, Headache - Patient Data Vitals - Most Recent: Last Vital Signs Temp 97.3 F 12/28/18 10:35 Pulse 82 12/28/18 10:35 Resp 17 12/28/18 10:35 BP 114/72 12/28/18 10:35 Pulse Ox 94 L 12/28/18 10:35 Weight - Most Recent: 91.898 kg I&O - Last 24 hours: Intake & Output 12/27/18 12/28/18 12/28/18 22:59 06:59 14:59 Intake Total 1950 1212 Output Total 525 225 Balance 1425 987 Lab Results - Last 24 hrs: Laboratory Results - last 24 hr 12/27/18 12/28/18 12/28/18 Range/Units 15:49 07:15 07:15 WBC 14.2 H (4.0-11.0) K/uL RBC 4.51 (4.50-6.50) M/uL Hgb 13.1 (13.0-18.0) g/dL Hct 40.3 (40.0-54.0) % MCV 89 (76-96) fL MCH 29.0 (27.0-32.0) pg MCHC 32.5 (31.0-35.0) g/dL RDW 14.6 (11.0-16.0) % Plt Count 220 (150-400) K/uL MPV 10.7 H (6.0-10.0) fL Neut % (Auto) 79.8 H (45.0-70.0) % Lymph % (Auto) 10.9 L (20.0-40.0) % [place] % (Auto) 8.1 (3.0-10.0) % Eos % (Auto) 0.9 L (1.0-5.0) % Baso % (Auto) 0.3 (0.0-0.5) % Neut # (Auto) 11.30 H (2.00-7.50) K/uL Lymph # (Auto) 1.54 (1.50-4.00) K/uL [place] # (Auto) 1.14 H (0.20-0.80) K/uL Eos # (Auto) 0.13 (0.04-0.40) K/uL Baso # (Auto) 0.04 (0.02-0.10) K/uL Sodium 143 (136-145) mmol/L Potassium 4.1 (3.5-5.1) mmol/L Chloride 108 H (98-107) mmol/L Carbon Dioxide 25.5 (21.0-32.0) mmol/L Anion Gap 13.6 (5.0-15.0) mmol/L BUN 20 (8-26) mg/dL Creatinine 1.09 (0.70-1.30) mg/dL Est Cr Clr Drug Dosing 70.73 mL/min Estimated GFR (MDRD) > 60 (>60) MLS/MIN BUN/Creatinine Ratio 18.3 (6-25) Glucose 86 (74-100) mg/dL Calcium 7.6 L (8.5-10.1) mg/dL Urine Color Yellow Urine Appearance Cloudy (CLEAR) Urine pH 5.5 (5.0-8.0) Ur Specific [place] >= 1.030 (1.003-1.030) Urine Protein Trace H (NEGATIVE) mg/dL Urine Glucose (UA) Negative (NEGATIVE) mg/dL Urine Ketones Trace H (NEGATIVE) mg/dL Urine Occult Blood Negative (NEGATIVE) Urine Nitrite Negative (NEGATIVE) Urine Bilirubin Small H (NEGATIVE) Urine Urobilinogen 0.2 (0.2-1.0) E.U./dL Ur Leukocyte Esterase Negative (NEGATIVE) Urine RBC Not seen /HPF Urine WBC Not seen /HPF Amorphous Sediment Many /HPF JONY Results - Last 24 hrs: Microbiology 12/26/18 Unknown MRSA Surveillance Culture - Final Nares, Unspecified NO MRSA ISOLATED Med Orders - Current: Current Medications Albuterol/Ipratropium (Combivent) 0 gm INH QID PRN PRN Reason: SHORTNESS OF BREATH Hydromorphone HCl (Dilaudid) 1 mg IV Q8H PRN PRN Reason: Pain (severe 7-10) Last Admin: 12/28/18 01:18 Dose: 1 mg Sodium Chloride (Normal Saline) 1,000 mls @ 125 mls/hr IV ASDIRECTED [facility] Last Admin: 12/28/18 08:07 Dose: 125 mls/hr Piperacillin Sod/Tazobactam (Sod 3.375 gm/ Sodium Chloride) 100 mls @ 100 mls/ hr IV Q6H [facility] Last Admin: 12/28/18 08:16 Dose: 100 mls/hr Iopamidol (Isovue-300 (61%)) 100 ml IV . DIRECTED PRN PRN Reason: RADIOLOGY EXAM Stop: 12/29/18 08:42 Ketorolac Tromethamine (Toradol) 30 mg IVPUSH Q8H PRN PRN Reason: Pain (moderate 4-6) Stop: 12/31/18 23:31 Last Admin: 12/28/18 08:08 Dose: 30 mg Mometasone Furoate/Formoterol Fumar (Dulera 100-5 Mcg) 2 puff IH BID [facility] Last Admin: 12/28/18 08:58 Dose: 2 puff Ondansetron HCl (Zofran) 4 mg IV Q6H PRN PRN Reason: Nausea/Vomiting Pantoprazole Sodium (Protonix Iv) 40 mg IVPUSH BEDTIME [facility] Last Admin: 12/27/18 19:58 Dose: 40 mg Sodium Chloride (Saline Flush) 10 ml FLUSH ASDIRECTED PRN PRN Reason: Keep Vein Open Sodium Chloride (Normal Saline) 50 ml FLUSH ONETIME [facility] Discontinued Medications Diatrizoate Meglum/Diatrizoate Sod (Gastrografin 37%) 30 ml PO . DIRECTED [facility] Last Admin: 12/26/18 18:57 Dose: 30 ml Hydromorphone HCl (Dilaudid) 2 mg IM ONETIME ONE Stop: 12/26/18 18:09 Last Admin: 12/26/18 18:12 Dose: Not Given Hydromorphone HCl (Dilaudid) 1 mg IVPUSH ONETIME ONE Stop: 12/26/18 18:10 Last Admin: 12/26/18 18:11 Dose: 1 mg Sodium Chloride (Normal Saline) 500 mls @ 999 mls/hr IV .BOLUS ONE Stop: 12/27/18 16:49 Last Admin: 12/27/18 16:28 Dose: Not Given Sodium Chloride (Normal Saline) 500 mls @ 500 mls/hr IV .BOLUS ONE Stop: 12/27/18 17:20 Last Admin: 12/27/18 16:27 Dose: 500 mls/hr Ketorolac Tromethamine (Toradol) 30 mg IM ONETIME ONE Stop: 12/26/18 17:36 Last Admin: 12/26/18 17:35 Dose: 30 mg Ketorolac Tromethamine (Toradol) 30 mg IVPUSH Q8H PRN PRN Reason: Pain (moderate 4-6) Montelukast Sodium (Singulair) 10 mg PO DAILY [facility] Last Admin: 12/27/18 10:07 Dose: Not Given Non-Formulary Medication (Albuterol/Ipratropium [Combivent Respimat]) 1 puff INH QID [facility] Non-Formulary Medication (Budesonide/Formoterol Fumarate [Symbicort 80-4.5 Mcg Inhaler]) 1 puff IH BID [facility] Last Admin: 12/26/18 21:07 Dose: Not Given - Exam General: Reports: Alert, Oriented HEENT: Reports: Pupils Equal, Pupils Reactive, EOMI, Mucous Membr. Moist/[place] Neck: Reports: Supple Lungs: Reports: Clear to Auscultation, Normal Respiratory Effort Cardiovascular: Reports: Regular Rate, Regular Rhythm GI/Abdominal Exam: Distended, Rebound, Tender (superficial tenderness all four quadrants. ), Abnormal Bowel Sounds (slightly hyperactive) Back Exam: Reports: Normal Inspection, Full Range of Motion Extremities: Normal Inspection, Normal Range of Motion, Non-Tender, No Pedal Edema, Normal Capillary Refill Skin: Reports: Warm, Intact
[2018-12-28] MEDS ORDERED: HYDROmorphone 2 MG/ML SDV ONE (12:20)
== END 2018-12-28 12:27 | DRG 392 ==
LOC: LB.ED 17:23 → LB.MS 19:51
PROVIDERS: ADMIT Family Medicine; ATTEND Family Medicine
DX: K57.20 Diverticulitis of large intestine with perforation and abscess without bleeding (principal); K63.2 Fistula of intestine; J44.9 Chronic obstructive pulmonary disease, unspecified; R82.90 Unspecified abnormal findings in urine; M54.9 Dorsalgia, unspecified; G89.29 Other chronic pain
CPT/HCPCS: 36415; 74176; 74177; 80048; 80053; 81001; 85025; 96374; 99285-25; A0425; A0429; A9270-GY; C9113; J1170; J1885; J2543; J7030; J7040; Q9963

== ENCOUNTER 2019-07-01 13:24 | Inpatient (IN) | payer MEDICARE, OTHER ==
[2019-07-01] MEDS ORDERED: Albuterol/Ipratropium 3.0-0.5 MG/3 ML Neb Soln NEB PRN (14:07)
[2019-07-01] MEDS ORDERED: Sodium Chloride 0.9% 10 ML Syringe FLUSH PRN ×2 (14:07)
[2019-07-01] MEDS ORDERED: Acetaminophen 325 MG Tab PO PRN (14:12)
[2019-07-01] MEDS: Sodium Chloride 0.9% 1,000 ML IV SCH (14:30)
[2019-07-01] MEDS ORDERED: Levofloxacin/Dextrose 5%-Water 750 MG in Premix Bag 1 BAG IV SCH (15:00)
[2019-07-01] MEDS ORDERED: Albuterol 8 GM Inhaler INH PRN (16:03)
[2019-07-01] MEDS ORDERED: OMALIZUMAB 150 MG SQ SCH (16:15)
[2019-07-01] MEDS: methylPREDNISolone Sodium Succinate 125 MG/2 ML SDV IVPUSH SCH (19:45)
[2019-07-01] MEDS: Albuterol/Ipratropium 3.0-0.5 MG/3 ML Neb Soln INH SCH (19:51)
[2019-07-01] MEDS ORDERED: Albuterol/Ipratropium 14.7 GM Inhaler INH SCH (20:00)
[2019-07-01] MEDS: Omeprazole 20 MG Cap.CR PO SCH (20:39)
[2019-07-01] MEDS: Sildenafil 20 MG Tab PO SCH (22:13)
[2019-07-02] MEDS: Sodium Chloride 0.9% 1,000 ML IV SCH (00:12)
--- NOTE | 2019-07-02 08:30 | PCM.PN ---
- General Info Date of Service: 07/02/19 Admission Dx/Problem (Free Text): community acquired pneumonia Functional Status: Reports: Tolerating Diet, Urinating, Incentive Spirometry - Review of Systems General: Reports: Weakness, Appetite (increase in appetite). Denies: Fever HEENT: Denies: Headaches, Sinus Congestion, Visual Changes Pulmonary: Reports: Cough, Wheezing. Denies: Hemoptysis Cardiovascular: Reports: Dyspnea on Exertion. Denies: Chest Pain, Palpitations , Edema Gastrointestinal: Denies: Abdominal Pain, Decreased Appetite (States increase in appetite with Solu-Medrol), Diarrhea, Nausea Genitourinary: Reports: No Symptoms. Denies: Dysuria Musculoskeletal: Reports: No Symptoms Skin: Reports: No Symptoms Neurological: Reports: No Symptoms Psychiatric: Reports: No Symptoms - Patient Data Vitals - Most Recent: Last Vital Signs Temp 98.6 F 07/02/19 06:07 Pulse 72 07/02/19 06:07 Resp 16 07/02/19 06:07 BP 129/88 07/02/19 06:07 Pulse Ox 94 L 07/02/19 06:07 I&O - Last 24 Hours: Intake & Output 07/01/19 07/02/19 07/02/19 22:59 06:59 14:59 Intake Total 1521 1563 Output Total 200 Balance 1521 1363 Lab Results Last 24 Hours: Laboratory Results - last 24 hr 07/01/19 07/01/19 07/01/19 Range/Units 13:30 14:20 14:30 WBC 24.2 H* D (4.0-11.0) K/uL RBC 5.56 (4.50-6.50) M/uL Hgb 16.8 (13.0-18.0) g/dL Hct 50.1 (40.0-54.0) % MCV 90 (76-96) fL MCH 30.2 (27.0-32.0) pg MCHC 33.5 (31.0-35.0) g/dL RDW 14.9 (11.0-16.0) % Plt Count 319 (150-400) K/uL MPV 10.2 H (6.0-10.0) fL Neut % (Auto) 89.4 H (45.0-70.0) % Lymph % (Auto) 5.3 L (20.0-40.0) % [place] % (Auto) 5.2 (3.0-10.0) % Eos % (Auto) 0.0 L (1.0-5.0) % Baso % (Auto) 0.1 (0.0-0.5) % Neut # (Auto) 21.65 H (2.00-7.50) K/uL Lymph # (Auto) 1.29 L (1.50-4.00) K/uL [place] # (Auto) 1.27 H (0.20-0.80) K/uL Eos # (Auto) 0.00 L (0.04-0.40) K/uL Baso # (Auto) 0.03 (0.02-0.10) K/uL Sodium 144 (136-145) mmol/L Potassium 4.3 (3.5-5.1) mmol/L Chloride 105 (98-107) mmol/L Carbon Dioxide 24.6 (21.0-32.0) mmol/L Anion Gap 18.7 H (5.0-15.0) mmol/L BUN 27 H D (8-26) mg/dL Creatinine 1.00 (0.70-1.30) mg/dL Est Cr Clr Drug Dosing 73.46 mL/min Estimated GFR (MDRD) > 60 (>60) MLS/MIN BUN/Creatinine Ratio 27.0 H (6-25) Glucose 106 H (74-100) mg/dL Lactic Acid 1.89 H (0.90-1.70) mmol/L Calcium 9.0 (8.5-10.1) mg/dL Total Bilirubin 0.3 D (0.0-1.0) mg/dL AST 17 (15-37) U/L ALT 21 (12-78) U/L Alkaline Phosphatase 63 (46-116) U/L Total Protein 6.8 (6.4-8.2) g/dL Albumin 3.6 (3.4-5.0) g/dL Globulin 3.2 (2.2-4.2) g/dL Albumin/Globulin Ratio 1.1 (0.8-2.0) 07/02/19 07/02/19 Range/Units 07:15 07:15 WBC 15.9 H D (4.0-11.0) K/uL RBC 5.42 (4.50-6.50) M/uL Hgb 16.5 (13.0-18.0) g/dL Hct 49.2 (40.0-54.0) % MCV 91 (76-96) fL MCH 30.4 (27.0-32.0) pg MCHC 33.5 (31.0-35.0) g/dL RDW 14.6 (11.0-16.0) % Plt Count 291 (150-400) K/uL MPV 10.8 H (6.0-10.0) fL Neut % (Auto) 88.4 H (45.0-70.0) % Lymph % (Auto) 7.9 L (20.0-40.0) % [place] % (Auto) 3.6 (3.0-10.0) % Eos % (Auto) 0.0 L (1.0-5.0) % Baso % (Auto) 0.1 (0.0-0.5) % Neut # (Auto) 14.08 H (2.00-7.50) K/uL Lymph # (Auto) 1.26 L (1.50-4.00) K/uL [place] # (Auto) 0.58 (0.20-0.80) K/uL Eos # (Auto) 0.00 L (0.04-0.40) K/uL Baso # (Auto) 0.02 (0.02-0.10) K/uL Sodium 144 (136-145) mmol/L Potassium 4.4 (3.5-5.1) mmol/L Chloride 107 (98-107) mmol/L Carbon Dioxide 26.7 (21.0-32.0) mmol/L Anion Gap 14.7 (5.0-15.0) mmol/L BUN 18 D (8-26) mg/dL Creatinine 0.86 (0.70-1.30) mg/dL Est Cr Clr Drug Dosing 7.33 mL/min Estimated GFR (MDRD) > 60 (>60) MLS/MIN BUN/Creatinine Ratio 20.9 (6-25) Glucose 131 H (74-100) mg/dL Lactic Acid (0.90-1.70) mmol/L Calcium 8.2 L (8.5-10.1) mg/dL Total Bilirubin 0.3 (0.0-1.0) mg/dL AST 14 L (15-37) U/L ALT 17 (12-78) U/L Alkaline Phosphatase 59 (46-116) U/L Total Protein 6.3 L (6.4-8.2) g/dL Albumin 3.0 L (3.4-5.0) g/dL Globulin 3.3 (2.2-4.2) g/dL Albumin/Globulin Ratio 0.9 (0.8-2.0) Med Orders - Current: Current Medications Acetaminophen (Tylenol) 650 mg PO Q4H PRN PRN Reason: Pain (Mild 1-3)/fever Albuterol (Ventolin Hfa) 0 gm INH Q4H PRN PRN Reason: Shortness of Breath Albuterol/Ipratropium (Duoneb 3.0-0.5 Mg/3 Ml) 3 ml NEB Q4H PRN PRN Reason: Shortness Of Breath/wheezing Albuterol/Ipratropium (Duoneb 3.0-0.5 Mg/3 Ml) 3 ml INH QID [facility] Last Admin: 07/01/19 19:51 Dose: 3 ml Levofloxacin/Dextrose 750 mg/ (Premix) 150 mls @ 150 mls/hr IV Q24H [facility] Stop: 07/05/19 15:59 Last Admin: 07/01/19 15:00 Dose: 150 mls/hr Sodium Chloride (Normal Saline) 1,000 mls @ 125 mls/hr IV ASDIRECTED [facility] Last Admin: 07/02/19 00:12 Dose: 125 mls/hr Methylprednisolone Sodium Succinate (Solu-Medrol) 125 mg IVPUSH DAILY [facility] Last Admin: 07/01/19 19:45 Dose: 125 mg Montelukast Sodium (Singulair) 10 mg PO DAILY [facility] Non-Formulary Medication (Omalizumab [Xolair]) 150 mg SQ ASDIRECTED [facility] Omeprazole (Omeprazole) 20 mg PO BID [facility] Last Admin: 07/01/19 20:39 Dose: 20 mg Sildenafil Citrate (Revatio) 50 mg PO DAILY [facility] Last Admin: 07/01/19 22:13 Dose: Not Given Sodium Chloride (Saline Flush) 10 ml FLUSH ASDIRECTED PRN PRN Reason: Keep Vein Open Sodium Chloride (Saline Flush) 10 ml FLUSH ASDIRECTED PRN PRN Reason: Keep Vein Open Discontinued Medications Albuterol/Ipratropium (Combivent) 0 gm INH QID [facility] Last Admin: 07/01/19 20:40 Dose: Not Given - Exam General: Alert, Oriented, Cooperative, No Acute Distress HEENT: Mucous Membr. Moist/[place] Neck: Supple, Trachea Midline Lungs: Decreased Breath Sounds, Rhonchi, Wheezing, Other (using Incentive spirometer) Cardiovascular: Regular Rate, Regular Rhythm GI/Abdominal Exam: Soft, Non-Tender Extremities: Normal Range of Motion, Non-Tender Skin: Warm, Dry Neurological: No New Focal Deficit Psy/Mental Status: Alert, Normal Affect, Normal Mood - Problem List & Annotations (1) Community acquired pneumonia SNOMED Code(s): 951298018 Code(s): J18.9 - PNEUMONIA, UNSPECIFIED ORGANISM Status: Acute Current Visit: Yes (2) COPD (chronic obstructive pulmonary disease) SNOMED Code(s): 24266572 Code(s): J44.9 - CHRONIC OBSTRUCTIVE PULMONARY DISEASE, UNSPECIFIED Status : Acute Current Visit: Yes - Problem List Review Problem List Initiated/Reviewed/Updated: Yes - My Orders Last 24 Hours: My Active Orders 07/02/19 16:00 CBC WITH AUTO DIFF [HEME] Routine - Plan Plan:: Pt is feeling better today and wants to go home. WBC on admit was 24.2. WBC decrease to 15.9 this am. WBC repeat at 1600 and planned to send pt home, but WBC elevated to 20.6. This may be increase in part from the Solu-Medrol. Notified pt of lab results and will recheck WBC in am. Continue with Levaquin 750 mg IV daily. May need to change antibiotic if WBC increase tomorrow. Pt is sitting in the chair this afternoon and is increase Incentive Spirometer to 2000 from 1000 this am. Blood culture preliminary is no growth. RN will work on getting sputum culture. Will start Probiotic to prevent any diarrhea with antibiotic. Pt to contact a friend to excelsior picker his medication from the pharmacy before noon tomorrow. Symptoms improved, but WBC elevated this afternoon, from this am. Continue with Duo-neb qid. Solumedrol 125 mg IV given this am. He does have a Rx at the pharmacy in [place] for Prednisone and the Levaquin 750 mg tablet X 7 days. Will transfer care to Poonam Renner CNP for the weekend.
[2019-07-02] MEDS: Omeprazole 20 MG Cap.CR PO SCH ×2 (08:32→19:42)
[2019-07-02] MEDS: Montelukast 10 MG Tab PO SCH (08:32)
[2019-07-02] MEDS: Albuterol/Ipratropium 3.0-0.5 MG/3 ML Neb Soln INH SCH ×4 (08:32→19:42)
[2019-07-02] MEDS: methylPREDNISolone Sodium Succinate 125 MG/2 ML SDV IVPUSH SCH (08:32)
[2019-07-02] MEDS: Sildenafil 20 MG Tab PO SCH (08:33)
[2019-07-02] MEDS ORDERED: Levofloxacin/Dextrose 5%-Water 150 ML IV ONE (10:46)
[2019-07-02] MEDS: Levofloxacin/Dextrose 5%-Water 750 MG in Premix Bag 1 BAG IV SCH (10:55)
[2019-07-02] MEDS ORDERED: Sodium Chloride 0.9% 1,000 ML IV SCH (17:15)
[2019-07-02] MEDS ORDERED: Zolpidem 5 MG Tab PO ONE ×2 (17:15→20:00)
[2019-07-02] MEDS ORDERED: Azithromycin 1,000 MG in Sodium Chloride 0.9% 500 ML IV ONE (17:16)
[2019-07-02] MEDS ORDERED: Albuterol/Ipratropium 3.0-0.5 MG/3 ML Neb Soln NEB PRN (17:17)
[2019-07-02] MEDS ORDERED: Azithromycin 500 MG Vial ONE (17:31)
[2019-07-02] MEDS: Lactobacillus Acidophilus/Lactobacillus Sporogenes (Probiotic) Tab PO SCH (18:04)
[2019-07-03] MEDS: Albuterol/Ipratropium 3.0-0.5 MG/3 ML Neb Soln INH SCH (07:51)
[2019-07-03] MEDS: Montelukast 10 MG Tab PO SCH (07:51)
[2019-07-03] MEDS: Lactobacillus Acidophilus/Lactobacillus Sporogenes (Probiotic) Tab PO SCH (07:51)
[2019-07-03] MEDS: Sildenafil 20 MG Tab PO SCH (07:52)
[2019-07-03] MEDS: Omeprazole 20 MG Cap.CR PO SCH (07:52)
[2019-07-03] MEDS: methylPREDNISolone Sodium Succinate 125 MG/2 ML SDV IVPUSH SCH (07:54)
[2019-07-03 08:24] VITALS: BP 148/94; PULSE 89
[2019-07-03] MEDS ORDERED: Levofloxacin 750 MG Tab ONE ×2 (09:00→10:43)
[2019-07-03] MEDS ORDERED: Levofloxacin/Dextrose 5%-Water 150 ML IV ONE (10:14)
[2019-07-03] MEDS: Levofloxacin/Dextrose 5%-Water 750 MG in Premix Bag 1 BAG IV SCH (10:18)
--- NOTE | 2019-07-03 10:32 | PCM.DCSUM1 ---
Discharge Summary - Hospital Course Free Text/Narrative:: Patient with history of chronic lung disease admitted for treatment of pneumonia. HPI Initial Comments: Admitted to inpatient area for IV antibiotics for treatment of pneumonia. Diagnosis: Stroke: No - Discharge Data Discharge Date: 07/01/19 Discharge Disposition: Home, Self-Care 01 Condition: Good - Referral to Home Health Primary Care Physician: PCP None - Discharge Plan *PRESCRIPTION DRUG MONITORING PROGRAM REVIEWED*: No *COPY OF PRESCRIPTION DRUG MONITORING REPORT IN PATIENT MAURICIO: No Home Medications: Home Meds Albuterol [Ventolin HFA] 1 inh PO Q4H PRN 07/01/19 [History] Albuterol/Ipratropium [Combivent Respimat] 1 inh PO QID 07/01/19 [History] Albuterol/Ipratropium [DuoNeb 3.0-0.5 MG/3 ML] 1 vial INH QID 07/01/19 [History] Montelukast [Singulair] 10 mg PO DAILY 07/01/19 [History] Omalizumab [Xolair] 150 mg SQ ASDIRECTED 07/01/19 [History] Omeprazole 20 mg PO BID 07/01/19 [History] Sildenafil [Revatio] 50 mg PO DAILY 07/01/19 [History] predniSONE [Prednisone] 10 mg PO DAILY PRN 07/01/19 [History] predniSONE [Prednisone] 50 mg PO DAILY 07/01/19 [History] - Discharge Summary/Plan Comment DC Time >30 min.: No Discharge Summary/Plan Comment: Patient should continue all outpatient medications as previously prescribed. He will take Levoquin, 750 mg tablet at 12:00 noon on 07/04/19 and then medicinal plant picker prescription already at pharmacy for rest of antibiotic course on Friday. - General Info Date of Service: 07/03/19 Admission Dx/Problem (Free Text: community acquired pneumonia Subjective Update: Patient doing well, up in halls and requesting discharge. Continues to cough "some" but feels this is better as it is decreased. Appetite is good, drinking fluids well without nausea or vomiting. No diarrhea. He denies pain. States he has not been sleeping well since he has been here. Functional Status: Reports: Pain Controlled - Review of Systems General: Denies: Fever, Chills, Appetite HEENT: Reports: No Symptoms Pulmonary: Reports: Cough, Wheezing. Denies: Shortness of Breath, Pleuritic Chest Pain Cardiovascular: Reports: No Symptoms Gastrointestinal: Reports: No Symptoms Genitourinary: Reports: No Symptoms Musculoskeletal: Reports: No Symptoms Skin: Reports: No Symptoms Neurological: Reports: No Symptoms - Patient Data Vitals - Most Recent: Last Vital Signs Temp 36.8 C 07/03/19 08:00 Pulse 89 07/03/19 08:00 Resp 18 07/03/19 08:00 BP 148/94 H 07/03/19 08:00 Pulse Ox 94 L 07/03/19 08:00 Weight - Most Recent: 84.822 kg I&O - Last 24 hours: Intake & Output 07/02/19 07/03/19 07/03/19 22:59 06:59 14:59 Intake Total 1400 1560 Balance 1400 1560 Lab Results - Last 24 hrs: Laboratory Results - last 24 hr 07/02/19 07/03/19 Range/Units 16:00 08:10 WBC 20.6 H* D 18.1 H (4.0-11.0) K/uL RBC 5.63 5.66 (4.50-6.50) M/uL Hgb 17.0 17.1 (13.0-18.0) g/dL Hct 50.6 50.7 (40.0-54.0) % MCV 90 90 (76-96) fL MCH 30.2 30.2 (27.0-32.0) pg MCHC 33.6 33.7 (31.0-35.0) g/dL RDW 14.5 14.4 (11.0-16.0) % Plt Count 324 277 (150-400) K/uL MPV 10.1 H 10.5 H (6.0-10.0) fL Neut % (Auto) 89.1 H 69.6 (45.0-70.0) % Lymph % (Auto) 6.5 L 23.0 (20.0-40.0) % [place] % (Auto) 4.1 7.2 (3.0-10.0) % Eos % (Auto) 0.0 L 0.1 L (1.0-5.0) % Baso % (Auto) 0.3 0.1 (0.0-0.5) % Neut # (Auto) 18.36 H 12.59 H (2.00-7.50) K/uL Lymph # (Auto) 1.33 L 4.15 H (1.50-4.00) K/uL [place] # (Auto) 0.85 H 1.31 H (0.20-0.80) K/uL Eos # (Auto) 0.00 L 0.01 L (0.04-0.40) K/uL Baso # (Auto) 0.06 0.02 (0.02-0.10) K/uL JONY Results - Last 24 hrs: Microbiology 07/01/19 16:50 Aerobic Blood Culture - Preliminary Blood NO GROWTH AFTER 1 DAY Anaerobic Blood Culture - Preliminary NO GROWTH AFTER 1 DAY 07/01/19 14:40 Aerobic Blood Culture - Preliminary Blood NO GROWTH AFTER 1 DAY Anaerobic Blood Culture - Preliminary NO GROWTH AFTER 1 DAY 07/01/19 16:00 MRSA Surveillance Culture - Final Nares, Right NO MRSA ISOLATED Med Orders - Current: Current Medications Acetaminophen (Tylenol) 650 mg PO Q4H PRN PRN Reason: Pain (Mild 1-3)/fever Albuterol (Ventolin Hfa) 0 gm INH Q4H PRN PRN Reason: Shortness of Breath Albuterol/Ipratropium (Duoneb 3.0-0.5 Mg/3 Ml) 3 ml INH QID [facility] Last Admin: 07/03/19 07:51 Dose: 3 ml Albuterol/Ipratropium (Duoneb 3.0-0.5 Mg/3 Ml) 3 ml NEB Q2H PRN PRN Reason: Wheezing Levofloxacin/Dextrose 750 mg/ (Premix) 150 mls @ 150 mls/hr IV Q24H [facility] Stop: 07/05/19 11:35 Last Admin: 07/03/19 10:18 Dose: 150 mls/hr Sodium Chloride (Normal Saline) 1,000 mls @ 1,000 mls/hr IV ASDIRECTED [facility] Last Admin: 07/02/19 17:37 Dose: 1,000 mls/hr Lactobacillus Acidophilus (Acidolphilus Extra Strength) 1 tab PO DAILY [facility] Last Admin: 07/03/19 07:51 Dose: 1 tab Methylprednisolone Sodium Succinate (Solu-Medrol) 125 mg IVPUSH DAILY [facility] Last Admin: 07/03/19 07:54 Dose: 125 mg Montelukast Sodium (Singulair) 10 mg PO DAILY [facility] Last Admin: 07/03/19 07:51 Dose: 10 mg Non-Formulary Medication (Omalizumab [Xolair]) 150 mg SQ ASDIRECTED [facility] Omeprazole (Omeprazole) 20 mg PO BID [facility] Last Admin: 07/03/19 07:52 Dose: 20 mg Sildenafil Citrate (Revatio) 50 mg PO DAILY [facility] Last Admin: 07/03/19 07:52 Dose: Not Given Sodium Chloride (Saline Flush) 10 ml FLUSH ASDIRECTED PRN PRN Reason: Keep Vein Open Sodium Chloride (Saline Flush) 10 ml FLUSH ASDIRECTED PRN PRN Reason: Keep Vein Open Discontinued Medications Albuterol/Ipratropium (Duoneb 3.0-0.5 Mg/3 Ml) 3 ml NEB Q4H PRN PRN Reason: Shortness Of Breath/wheezing Albuterol/Ipratropium (Combivent) 0 gm INH QID [facility] Last Admin: 07/01/19 20:40 Dose: Not Given Azithromycin (Zithromax) Confirm Administered Dose 1,000 mg .ROUTE .STK-MED ONE Stop: 07/02/19 17:32 Last Admin: 07/03/19 07:12 Dose: Not Given Levofloxacin/Dextrose 750 mg/ (Premix) 150 mls @ 150 mls/hr IV Q24H [facility] Stop: 07/05/19 15:59 Last Admin: 07/01/19 15:00 Dose: 150 mls/hr Sodium Chloride (Normal Saline) 1,000 mls @ 125 mls/hr IV ASDIRECTED [facility] Last Admin: 07/02/19 00:12 Dose: 125 mls/hr Levofloxacin/Dextrose (Levaquin In D5w 750 Mg/150 Ml) Confirm Administered Dose 150 mls @ as directed IV .STK-MED ONE Stop: 07/02/19 10:47 Last Admin: 07/02/19 10:52 Dose: 50 mls/hr Azithromycin 1,000 mg/ Sodium (Chloride) 500 mls @ 250 mls/hr IV ONETIME ONE Stop: 07/02/19 19:15 Last Admin: 07/02/19 18:35 Dose: 250 mls/hr Levofloxacin/Dextrose (Levaquin In D5w 750 Mg/150 Ml) Confirm Administered Dose 150 mls @ as directed IV .STK-MED ONE Stop: 07/03/19 10:15 Last Admin: 07/03/19 10:21 Dose: Not Given Zolpidem Tartrate (Ambien) 10 mg PO ONETIME ONE Stop: 07/02/19 17:16 Last Admin: 07/03/19 07:12 Dose: Not Given Zolpidem Tartrate (Ambien) 10 mg PO ONETIME ONE Stop: 07/02/19 20:01 Last Admin: 07/02/19 19:50 Dose: 10 mg - Exam General: Reports: Alert, Oriented HEENT: Reports: Pupils Equal, Pupils Reactive, EOMI Neck: Reports: Supple. Denies: Lymphadenopathy Lungs: Reports: Clear to Auscultation, Normal Respiratory Effort, Wheezing ( faint expiratory wheezes in all [place]) Extremities: Normal Inspection, Normal Range of Motion Skin: Reports: Warm, Dry Neurological: Reports: No New Focal Deficit Psy/Mental Status: Reports: Alert, Normal Affect, Normal Mood
== END 2019-07-03 11:25 | disposition home or self-care (01) | DRG 194 ==
LOC: LB.CLINIC 13:24 → LB.MS 13:58 → UNDOADMIN 13:58 → LB.MS 14:12
PROVIDERS: ADMIT Nurse Practitioner Family; ATTEND Nurse Practitioner Family
DX: J18.9 Pneumonia, unspecified organism (principal); J44.0 Chronic obstructive pulmonary disease with (acute) lower respiratory infection; F17.210 Nicotine dependence, cigarettes, uncomplicated; Z79.899 Other long term (current) drug therapy; Z79.52 Long term (current) use of systemic steroids
CPT/HCPCS: 36415; 80053; 83605; 85025; 87040; 87070; 87205; A9270-GY; J0456; J1956; J2930; J7030; J7040; J7620-GY

== ENCOUNTER 2019-09-02 12:51 | Outpatient (CLI) | payer OTHER, MEDICARE ==
[2019-09-02] MEDS: XOLAIR 150 MG SUBCUT SCH (12:56)
[2019-09-02 14:17] VITALS: BP 131/90; PULSE 80
== END 2019-09-02 13:30 | disposition home or self-care (01) ==
LOC: LB.ACU 12:51
PROVIDERS: ATTEND Family Medicine
DX: J45.50 Severe persistent asthma, uncomplicated (principal)
CPT/HCPCS: 96372; A9270

== ENCOUNTER → 2019-09-02 | Outpatient (CLI) | payer OTHER, MEDICARE | LOC: LB.CLINIC 15:07 | PROVIDERS: ATTEND Nurse Practitioner Family | DX: R30.0 Dysuria (principal); J45.50 Severe persistent asthma, uncomplicated | CPT/HCPCS: 81001; 96372; A9270 ==